=== PATIENT | male | born 1975 | race Caucasian/White ===

== ENCOUNTER 2018-11-25 09:40 | Emergency (ER) | payer MEDICARE, MEDICAID ==
[~2018-11-25] VITALS: Ht 177.8 cm; Wt 77.6 kg
[2018-11-25] MEDS ORDERED: diphenhydrAMINE 50 mg/ml inj IM ONE (09:50)
[2018-11-25] MEDS ORDERED: LORazepam 2 mg/ml vial IM ONE (09:50)
[2018-11-25] MEDS ORDERED: haloperidol lactate 5mg/ml inj IM ONE (09:50)
[2018-11-25 10:46] LABS: BASOPHILS % (AUTO) 0.1 % (0-1); EOSINOPHILS # (AUTO) 0.1 X10'3 (0-0.9); HEMATOCRIT 45.7 % (42.0-52.0); LYMPHOCYTES # (AUTO) 1.7 X10'3 (1.1-4.8); LYMPHOCYTES % (AUTO) 24.3 % (21-51); MEAN CORPUSCULAR HEMOGLOBIN 30.7 PG (27.0-31.0); MEAN CORPUSCULAR HGB CONC 35.1 % (33.0-36.5); MEAN CORPUSCULAR VOLUME 87.4 FL (78-98); MEAN PLATELET VOLUME 6.6 FL (7.4-10.4); MONOCYTES # (AUTO) 0.7 X10'3 (0-0.9); MONOCYTES % (AUTO) 9.7 % (2-12); NEUTROPHILS # (AUTO) 4.6 X10'3 (1.8-7.7); NEUTROPHILS % (AUTO) 64.9 % (42-75); PLATELET COUNT 241 X10'3 (140-440); RED BLOOD COUNT 5.23 X10'6 (4.70-6.10); RED CELL DISTRIBUTION WIDTH 12.8 % (11.5-14.5); WHITE BLOOD COUNT 7.1 X10'3 (4.5-11.0)
[2018-11-25 11:05] LABS: ALANINE AMINOTRANSFERASE 53 U/L (12-78); ALBUMIN 4.6 G/DL (3.4-5.0); ALBUMIN/GLOBULIN RATIO 1.4 (1.1-1.5); ALKALINE PHOSPHATASE 84 IU/L (46-116); ANION GAP 15 (8-16); ASPARTATE AMINO TRANSFERASE 56 U/L (10-37); BILIRUBIN,TOTAL 0.9 MG/DL (0.1-1.0); BLOOD UREA NITROGEN 19 MG/DL (7-18); BUN/CREATININE RATIO 18.1 (5.4-32.0); CHLORIDE 105 MMOL/L (99-107); CREATININE 1.05 MG/DL (0.60-1.10); GLUCOSE 102 MG/DL (70-104); POTASSIUM 3.3 MMOL/L (3.5-5.1); SODIUM 141 MMOL/L (135-145); TOTAL CARBON DIOXIDE 21.4 MMOL/L (24-32); eGFR 77 ML/MIN
[2018-11-25 11:16] LABS: ETHANOL < 0.010 GM/DL (0.0-0.010)
[2018-11-25] MEDS ORDERED: LORA0.5T PO (11:49)
[2018-11-25] MEDS ORDERED: ESCI20TA38 PO (11:49)
[2018-11-25] MEDS ORDERED: LORA10TA7 PO (11:49)
[2018-11-25] MEDS ORDERED: FLUT15.87 NAS (11:49)
[2018-11-25] MEDS ORDERED: PANT40TA4 PO (11:49)
[2018-11-25] MEDS ORDERED: THIO25TA PO (11:49)
[2018-11-25] MEDS ORDERED: THIO50TA PO (11:49)
--- NOTE | 2018-11-25 12:09 | NUR ---
to room 26 ER overflow, from main [facility].
[2018-11-25] MEDS ORDERED: potassium Cl 20 mEq SR tablet PO ONE (12:10)
[2018-11-25 12:36] LABS: CLARITY,URINE CLEAR (Clear); COLOR,URINE YELLOW (Yellow); GLUCOSE, URINE NEGATIVE (Neg); KETONES,URINE 15 mg/dl (Neg); LEUKOCYTE ESTERASE ,URINE NEGATIVE (Neg); NITRITES, URINE NEGATIVE (Neg); OCCULT BLOOD,URINE NEGATIVE (Neg); PH,URINE 5.5 (4.8-8.0); PROTEIN,URINE 30 mg/dl (Neg); UA COLLECTION TYPE URINAL
--- NOTE | 2018-11-25 12:43 | NUR ---
Patient is very sleepy with supervisor machine workers at bedside. Patient awoke to take K+Cl- and went back to sleep. Continue to monitor.
[2018-11-25 12:44] LABS: MUCUS STRANDS MANY /LPF (Neg)
[2018-11-25 12:51] LABS: HYALINE CASTS 0-3 /LPF (NEGATIVE)
[2018-11-25 12:52] LABS: FINE GRANULAR CAST 0-3 /LPF (NEGATIVE)
[2018-11-25 12:53] LABS: TRANSITIONAL EPI CELLS,URINE FEW /HPF
[2018-11-25 12:54] LABS: BACTERIA,URINE NONE SEEN /HPF (Neg); RBC,URINE 0-2 /HPF (0-2); WBC,URINE 0-4 /HPF (0-4)
[2018-11-25 12:55] LABS: SQUAMOUS EPITHELIAL CELL,UR FEW /LPF (FEW)
[2018-11-25 12:57] LABS: URINE AMPHETAMINE SCREEN NEGATIVE (Neg); URINE BARBITUATE SCREEN NEGATIVE (Neg); URINE BENZODIAZEPINES SCREEN NEGATIVE (Neg); URINE CANNABINOID SCREEN NEGATIVE (Neg); URINE COCAINE SCREEN NEGATIVE (Neg); URINE METHADONE SCREEN NEGATIVE (Neg); URINE OPIATE SCREEN NEGATIVE (Neg); URINE PHENCYCLIDINE SCREEN NEGATIVE (Neg)
--- NOTE | 2018-11-25 14:39 | NUR ---
Patient sleeping on right side. No restless/distress observed. Continue to monitor.
--- NOTE | 2018-11-25 15:50 | NUR ---
Patient sleeping on left side. No restlessness observed. Continue to monitor.
--- NOTE | 2018-11-25 18:09 | NUR ---
Patient is sleeping supine. Pt barely awake for vital signs. Continue to monitor.
[2018-11-25] MEDS ORDERED: THIORIDAZINE HCL PO SCH (19:05)
--- NOTE | 2018-11-25 19:52 | NUR ---
[facility] called to initiate telepsych
--- NOTE | 2018-11-25 19:54 | NUR ---
Escitalopram 20 mg tabs unavailable from pharmacy, attempted to call [facility], but they are unavailable to answer during non business hours. will re-try in AM to see if med can be brought here for pt's use
[2018-11-25] MEDS: pantoprazole 40mg Tablet.DR PO SCH (21:46)
[2018-11-25] MEDS: LORazepam 0.5 MG tablet PO SCH (21:47)
--- NOTE | 2018-11-25 21:53 | NUR ---
Telepsych consult completed. MD recommended continuation of home med and inpatient admission
[2018-11-25] MEDS ORDERED: haloperidol 1mg tablet PO PRN (22:20)
[2018-11-25] MEDS ORDERED: LORazepam 1 MG tablet PO PRN (22:20)
[2018-11-25] MEDS ORDERED: haloperidol lactate 5mg/ml inj IM PRN (22:20)
[2018-11-25] MEDS ORDERED: LORazepam 2 mg/ml vial IV PRN (22:20)
--- NOTE | 2018-11-25 23:35 | NUR ---
pt resting calmly in bed with eyes closed. HOB elevated. Respirations WNL
--- NOTE | 2018-11-26 00:02 | NUR ---
Report received, assumed care. Resting in bed with eyes closed, appearing to sleep. Will continue to monitor.
--- NOTE | 2018-11-26 00:23 | NUR ---
Per review of records, listed conservator "Ravi Mcmullen" in December 2016 (accorsing to court documents provided by the [facility]), and patient's step-sister "Danni Joseph" is the current conservator. Contact information is not avail for Danni, and calls to detention have not been answered, and will endorse to am nurse to attempt in morning. Also, pharmacy requesting home medication "lexapro" be brought in, will endorse this to am nurse as well to address in morning for same reasoning--unable to contact [facility] tonight.
--- NOTE | 2018-11-26 00:50 | NUR ---
Resting in bed with eyes closed, appearing to sleep. Will continue to monitor.
--- NOTE | 2018-11-26 01:33 | NUR ---
Resting in bed with eyes closed, appearing to sleep. Will continue to monitor.
--- NOTE | 2018-11-26 02:17 | NUR ---
Resting in bed, appearing to sleep, no new concerns, will monitor.
--- NOTE | 2018-11-26 03:21 | NUR ---
Resting in bed, appearing to sleep, no new concerns, will monitor.
--- NOTE | 2018-11-26 04:28 | NUR ---
Note [email or web address] in EDM - 11/26/18 at 0431 by CINDY Up, requesting BRP, went into the restroom, was inside for <5 secs, flushed toilet and walked out. Was directed back to bed. Continues to ask for "any pills you can give me", though cannot provide a s/sx or complaint in which he needs medication.
--- NOTE | 2018-11-26 04:31 | NUR ---
In bed, appearting to sleep.
--- NOTE | 2018-11-26 05:18 | NUR ---
Awake, vital signs taken, up to BRP, denies needs. Will continue to monitor.
--- NOTE | 2018-11-26 07:00 | NUR ---
Pt lying in bed awake.
[2018-11-26] MEDS: LORazepam 0.5 MG tablet PO SCH ×3 (07:50→21:34)
[2018-11-26] MEDS: fluticasone nasal spray 16GM bottle NS SCH (07:51)
[2018-11-26] MEDS: pantoprazole 40mg Tablet.DR PO SCH ×2 (07:51→21:38)
[2018-11-26] MEDS ORDERED: escitalopram 20mg tablet PO SCH (08:00)
[2018-11-26] MEDS ORDERED: ESCITALOPRAM 20 MG PO SCH (08:00)
[2018-11-26] MEDS: loratadine 10mg tablet PO SCH (08:00)
[2018-11-26] MEDS: CITALOPRAM 20 MG PO SCH (08:47)
--- NOTE | 2018-11-26 09:00 | NUR ---
Pt ate breakfast, took meds, pleasant, cooperative, hyperverbal, denies depression/anxiety, SI/HI/AH/VH, was disoriented to date/time, thought he was at [facility], could not verbalize why he was here.
--- NOTE | 2018-11-26 11:00 | NUR ---
Pt has been up several times to the bathroom, has requested his water pitcher refilled twice, interacts/socializes with staff, speech somewhat pressured at times, loose associations, flight of ideas, discussed his favorite movies and amusement damon/rides, likes to discuss things that he finds funny.
--- NOTE | 2018-11-26 12:16 | NUR ---
Pt approached the nurses' station to request his water pitcher be filled again, encouraged pt to wait until after lunchtime for a refill as pt has been drinking excessive amounts so far this morning and having to get up and go to bathroom to urinate numerous times.
--- NOTE | 2018-11-26 13:28 | NUR ---
Pt was evaluated by [facility].
--- NOTE | 2018-11-26 15:15 | NUR ---
Pt lying quietly in bed.
--- NOTE | 2018-11-26 17:05 | NUR ---
Pt up to bathroom.
--- NOTE | 2018-11-26 17:30 | NUR ---
Pt alert, randomly stated to staff, "I like quicksand, no that's bad" and laughed nervously.
[2018-11-26] MEDS ORDERED: pantoprazole 40mg Tablet.DR PO ONE (21:35)
[2018-11-27] MEDS ORDERED: LORazepam 0.5 MG tablet PO PRN (00:50)
--- NOTE | 2018-11-27 01:02 | NUR ---
pt restless and agitated. states, i cant think. ativan 1 mg po given
--- NOTE | 2018-11-27 04:04 | NUR ---
PT SLEEPING PEACFULLY, LYING ON HIS BACK WITH BLANKETS COVERING TO HIS SHOUDERS. SITTER WITHIN VEW OF PT AAT.
--- NOTE | 2018-11-27 05:07 | NUR ---
PT REMAINS ASLEEP. SITTER WITHIN VEW OF PT AAT.
[2018-11-27 05:30] VITALS: BP 155/89
--- NOTE | 2018-11-27 07:41 | NUR ---
PT SLEEPING. WILL ADMIN MEDICATIONS WHEN AWAKE.
[2018-11-27] MEDS: pantoprazole 40mg Tablet.DR PO SCH (08:15)
[2018-11-27] MEDS: CITALOPRAM 20 MG PO SCH (08:15)
[2018-11-27] MEDS: loratadine 10mg tablet PO SCH (08:15)
[2018-11-27] MEDS: LORazepam 0.5 MG tablet PO SCH ×2 (08:15→14:13)
[2018-11-27] MEDS: fluticasone nasal spray 16GM bottle NS SCH (08:16)
--- NOTE | 2018-11-27 08:20 | NUR ---
ADMIN MEDICATIONS ORDERED. PT UP TO BATHROOM FOR BM.
--- NOTE | 2018-11-27 09:39 | NUR ---
PT HAS EATEN HIS BREAKFAST, GONE TO THE BATHROOM AND IS NOW RESTING WITH EYES CLOSED.
--- NOTE | 2018-11-27 14:40 | NUR ---
SANDRA FROM [facility] IN ROOM TO CORIE STRONG
--- NOTE | 2018-11-27 16:45 | NUR ---
PT'S RIDE HERE TO TAKE PT TO HIS HOME. PT WILL BE RECEIVING EXTRA HELP NOW WITH HIS MEDICATIONS TO INSURE COMPLIANCE.
== END 2018-11-27 17:19 | disposition home or self-care (01) ==
LOC: ER 09:40
DX: F29 Unspecified psychosis not due to a substance or known physiological condition (principal); Z79.899 Other long term (current) drug therapy
CPT/HCPCS: 36415; 80053; 80305; 80320; 81001; 84443; 85025; 96372; 99285; J1200; J1630; J2060

== ENCOUNTER 2021-03-06 15:42 | Outpatient (CLI) | payer MEDICARE, MEDICAID ==
[~2021-03-06 15:42] MED LIST: ESCI20TA39 PO; FLUT15.87 NAS; LORA0.5T PO; LORA10TA7 PO; PANT40TA54 PO; THIO25TA PO; THIO50TA PO
== END 2021-03-06 23:59 | disposition home or self-care (01) ==
LOC: RAD 15:42
PROVIDERS: ATTEND Family Medicine
DX: Z01.810 Encounter for preprocedural cardiovascular examination (principal); Z13.6 Encounter for screening for cardiovascular disorders
CPT/HCPCS: 93005